=== PATIENT | male | born 1930 | race Caucasian/White ===

== ENCOUNTER 2018-04-23 12:55 | Observation (INO) | payer MEDICARE ==
[2018-04-23 14:05] LABS: BASO % 0.9 % (0.0-2.0); EOS # 0.2 K/uL (0.0-0.7); EOS % 3.9 % (0.0-4.0); LYMPH # 1.4 K/uL (1.0-4.3); LYMPH % 33.4 % (20.0-40.0); MEAN CELL VOLUME 82.8 fl (80.0-94.0); MEAN CORPUSCULAR HEMOGLOBIN 26.5 pg (27.0-31.0); MONO # 0.6 K/uL (0.0-0.8); MONO % 13.6 % (0.0-10.0); NEUT % 48.2 % (50.0-75.0); RBC 3.78 Mil/uL (4.40-5.90); RED CELL DISTRIBUTION WIDTH 16.1 % (11.5-14.5); WHITE BLOOD COUNT 4.2 K/uL (4.8-10.8)
[2018-04-23 14:18] LABS: ALBUMIN 3.7 g/dL (3.5-5.0); ALT/SGPT 21 U/L (21-72); AST/SGOT 34 U/L (17-59); BLOOD UREA NITROGEN 21 mg/dl (9-20); CALCIUM 9.1 mg/dL (8.4-10.2); GFR NON-AFRICAN AMERICAN > 60
--- NOTE | 2018-04-23 15:08 | ED PDOC ---
HPI: Altered Mental Status Time Seen by Provider: 04/23/18 13:28 Chief Complaint (Nursing): Altered Mental Status Chief Complaint (Provider): Altered Mental Status History Per: Patient History/Exam Limitations: None Onset/Duration Of Symptoms: Hrs Current Symptoms Are (Timing): Gone Now Additional Complaint(s): Isiah Anguiano is an 87 year old male with a past medical history of hypertension, hypercholesterolemia, and AFib who was brought to the ED by EMS for evaluation after visiting nurse service went to his home and found him not doing okay. Patient states that he is fine and has no medical complaints at this time. He is unsure why he was brought to the ED and admits that he loves with his son who was not home at the time as he was at work. Home number obt ained from chart reviewed and called, but no one answered. Patient denies any chest pain, shortness of breath, nausea, or vomiting. PMD: none provided Past Medical History Reviewed: Historical Data, Nursing Documentation, Vital Signs Vital Signs: Last Vital Signs Temp Pulse 52 L 04/23/18 13:18 Resp 16 04/23/18 13:18 BP 152/79 H 04/23/18 13:18 Pulse Ox 100 04/23/18 13:18 - Medical History PMH: Atrial Fibrillation, Dementia, HTN, Hypercholesterolemia Denies: Chronic Kidney Disease - Surgical History Surgical History: No Surg Hx - Family History Family History: States: Unknown Family Hx - Social History Current smoker - smoking cessation education provided: No Alcohol: None Drugs: Denies - Immunization History Hx Tetanus Toxoid Vaccination: No Hx Influenza Vaccination: No Hx Pneumococcal Vaccination: No - Home Medications Home Medications: Ambulatory Orders Medication Instructions Recorded Aspirin [Ecotrin] 81 mg PO DAILY #30 tabec 01/06/18 Collagenase [Santyl] 1 gm TOP DAILY #1 tube 01/06/18 Lisinopril [Zestril] 40 mg PO DAILY #30 tab 01/06/18 Metoprolol Tartrate [Lopressor] 25 mg PO DAILY #30 tab 01/06/18 Rosuvastatin Calcium [Crestor] 5 mg PO HS #30 tab 01/06/18 hydroCHLOROthiazide [Microzide] 12.5 mg PO DAILY #30 cap 01/06/18 risperiDONE [RisperDAL Tab] 1 mg PO DAILY #7 tab 01/06/18 - Allergies Allergies/Adverse Reactions: Allergies Allergy/AdvReac Type Severity Reaction Status Date / Time No Known Allergies Allergy Verified 01/05/18 11:09 Review of Systems ROS Statement: Except As Marked, All Systems Reviewed And Found Negative Cardiovascular: Negative for: Chest Pain Respiratory: Negative for: Shortness of Breath Gastrointestinal: Negative for: Nausea, Vomiting Physical Exam - Reviewed Nursing Documentation Reviewed: Yes Vital Signs Reviewed: Yes - Physical Exam Appears: Positive for: Well, Non-toxic, No Acute Distress Head Exam: Positive for: ATRAUMATIC, NORMAL INSPECTION, NORMOCEPHALIC Skin: Positive for: Normal Color, Warm, DRY Eye Exam: Positive for: EOMI, Normal appearance, PERRL ENT: Positive for: Normal ENT Inspection Cardiovascular/Chest: Positive for: Regular Rate, Rhythm. Negative for: Murmur Respiratory: Positive for: Normal Breath Sounds. Negative for: Respiratory Distress Gastrointestinal/Abdominal: Positive for: Normal Exam, Soft. Negative for: Tenderness Extremity: Positive for: Normal ROM. Negative for: Deformity, Swelling Neurologic/Psych: Positive for: Alert, Oriented (patient asked what year he states 2017 is mentally able to ascertain his age, no deficits noted). Negative for: Motor/Sensory Deficits - Laboratory Results Result Diagrams: 04/23/18 14:00 04/23/18 14:00 Lab Results: Total Bilirubin 0.3 mg/dl (0.2-1.3) 04/23/18 14:00 AST 34 U/L (17-59) 04/23/18 14:00 ALT 21 U/L (21-72) 04/23/18 14:00 Alkaline Phosphatase 58 U/L (38-126) 04/23/18 14:00 Total Protein 7.6 G/DL (6.3-8.2) 04/23/18 14:00 Albumin 3.7 g/dL (3.5-5.0) 04/23/18 14:00 Globulin 3.9 gm/dL (2.2-3.9) 04/23/18 14:00 Albumin/Globulin Ratio 1.0 (1.0-2.1) 04/23/18 14:00 - ECG O2 Sat by Pulse Oximetry: 100 (RA) Pulse Ox Interpretation: Normal Medical Decision Making Medical Decision Making: Time: 14:00 Plan: --EKG --CMP --CBC Scribe Attestation: Documented by Manjula Kincaid, acting as a scribe for Etta Plummer MD. Provider Scribe Attestation: All medical record entries made by the Scribe were at my direction and personally dictated by me. I have reviewed the chart and agree that the record accurately reflects my personal performance of the history, physical exam, medical decision making, and the department course for this patient. I have also personally directed, reviewed, and agree with the discharge instructions and disposition. Disposition - Disposition
--- NOTE | 2018-04-23 15:19 | ED PDOC ---
- Laboratory Results Result Diagrams: 04/24/18 05:40 04/24/18 05:40 Lab Results: Total Bilirubin 0.3 mg/dl (0.2-1.3) 04/23/18 14:00 AST 34 U/L (17-59) 04/23/18 14:00 ALT 21 U/L (21-72) 04/23/18 14:00 Alkaline Phosphatase 58 U/L (38-126) 04/23/18 14:00 Total Protein 7.6 G/DL (6.3-8.2) 04/23/18 14:00 Albumin 3.7 g/dL (3.5-5.0) 04/23/18 14:00 Globulin 3.9 gm/dL (2.2-3.9) 04/23/18 14:00 Albumin/Globulin Ratio 1.0 (1.0-2.1) 04/23/18 14:00 - ECG O2 Sat by Pulse Oximetry: 100 (RA) Pulse Ox Interpretation: Normal Medical Decision Making Medical Decision Making: Time: 15:00 Patient presenting for AMS workup was signed out to by Dr. Plummer pending labs. Will continue to attempt collateral from family. Time: 1709 --Labs normal, unsuccessfully attempt to contact family, will continue to contact them. Time: 1942 --Additional attempts to contact patient's son were unsuccessful. Provider contacted [place] PD, who will send out a industrial sales representative to patient's home address to try and get in contact with patient's son. Time: 1949 --[place] officer went to patient's home and no one was home. Time: 2099 --Spoke with Dr. Barnett regarding admission for dementia and AMS, as unable to safely discharge patient home. Patient is becoming agitated and fighting with ED staff. --Given Ativan 2mg IVP x2 Time: 2120 --Hospitalist has seen patient at this time. Scribe Attestation: Documented by Manjula Kincaid, acting as a scribe for Meka Travis MD. Provider Scribe Attestation: All medical record entries made by the Scribe were at my direction and personally dictated by me. I have reviewed the chart and agree that the record accurately reflects my personal performance of the history, physical exam, medical decision making, and the department course for this patient. I have also personally directed, reviewed, and agree with the discharge instructions and disposition. Disposition - Clinical Impression Clinical Impression: Altered mental status - POA Present On Arrival: None - Disposition Disposition: Admitted as In-Patient Disposition Time: 21:21 Condition: FAIR
--- NOTE | 2018-04-23 17:46 | CARD ---
APPROVED REPORT Date of service: 04/23/2018 EKG Measurement Heart [id number] [id number] <Conclusion> Sinus bradycardia with premature atrial complexes Otherwise normal ECG
[2018-04-23 21:36] VITALS: RESP 20
--- NOTE | 2018-04-23 23:23 | CP.PCM.HP ---
<Analilia Sotomayor - Last Filed: 04/24/18 01:05> History of Present Illness - History of Present Illness History of Present Illness: 87 year old male with a past medical history of hypertension, h ypercholesterolemia, anterior left lower extremity ulcer/wound who was brought to the ED by EMS for evaluation after a visiting nurse service called 911 because reportedly the patient was "not doing okay. As per reports, [facility] service did not accompany pt to ED. In ED, patient stated that he felt fine and had no medical complaints. He later got agitated/started fighting with ED staff, and was placed on 1:1 obs and received 2 mg haldol and 2 mg ativan. Patient told ED doctor that he lives with his son. ED attempted to contact son multiple times, as well as contacted [place] PD to go to the address, but no one was reported home, and patient was unsafe discharge at this point. When evaluated in ED, patient appeared to have dementia, was not answering questions appropriately, not sure why he is here but is able to state his name; AAO x1. He appeared tired, recently medicated with ativan. He denied chest pain, shortness of breath, abdominal pain, nausea, or vomiting. Limited history obtained via review of past [facility] visits; pt is retired activity assistant and has been brought in to [facility] in Oct and Dec 2017 after he presented to station asking for his check, though he has been retired for many years; was dx with delerium. Was also dx with cellulitis/dermatitis of wound on left anterior leg. Appears that in Dec 2017, [facility] [place] staff could not reach pt's son until following day. PMD: unknown History included below is from past admission at [facility] [place] in Dec 2017: PMHx: per son, CAD PSHx: per son, patient had a heart surgery and has stents 4 years ago FHx: Denies SocHx: denies tobacco, EtOH is social; three or less glasses of beer or wine in a weekend, denies illicit drugs. Patient still thinks he is a activity assistant in [place] but no longer works per old notes Allergies: NKDA Meds as per discharge summary 12/2017 Aspirin [Ecotrin] 81 mg PO DAILY Collagenase [Santyl] 1 gm TOP DAILY hydroCHLOROthiazide [Microzide] 12.5 mg PO DAILY Lisinopril [Zestril] 40 mg PO DAILY Metoprolol Tartrate [Lopressor] 25 mg PO DAILY risperiDONE [RisperDAL Tab] 1 mg PO DAILY Rosuvastatin Calcium [Crestor] 5 mg PO HS Present on Admission - Present on Admission Any Indicators Present on Admission: No Review of Systems - Review of Systems Systems not reviewed;Unavailable: Altered Mental Status Past Patient History - Past Social History Alcohol: None Drugs: Denies - CARDIAC Hx Cardiac Disorders: Yes (A-fib; HTN; hyperlipidemia) - PULMONARY Hx Respiratory Disorders: No - NEUROLOGICAL Hx Dementia: Yes - HEENT Hx HEENT Problems: No - RENAL Hx Chronic Kidney Disease: No - ENDOCRINE/METABOLIC Hx Endocrine Disorders: No - HEMATOLOGICAL/ONCOLOGICAL Hx Blood Disorders: No - INTEGUMENTARY Hx Dermatological Problems: Yes (LLE ulcer) - MUSCULOSKELETAL/RHEUMATOLOGICAL Hx Musculoskeletal Disorders: No Hx Falls: No - GASTROINTESTINAL Hx Gastrointestinal Disorders: No - GENITOURINARY/GYNECOLOGICAL Hx Genitourinary Disorders: No - PSYCHIATRIC Hx Psychophysiologic Disorder: No Hx Substance Use: No - SURGICAL HISTORY Hx Surgeries: Yes Hx Herniorrhaphy: Yes Other/Comment: heart surgery- with stents 4 years ago - ANESTHESIA Hx Anesthesia: Yes Hx Anesthesia Reactions: No Hx Malignant Hyperthermia: No Meds Allergies/Adverse Reactions: Allergies Allergy/AdvReac Type Severity Reaction Status Date / Time No Known Allergies Allergy Verified 01/05/18 11:09 Physical Exam - Constitutional Appears: Non-toxic, No Acute Distress - Respiratory Exam Respiratory Exam: Clear to Auscultation Bilateral, NORMAL BREATHING PATTERN. absent: Rales, Rhonchi, Wheezes, Respiratory Distress - Cardiovascular Exam Cardiovascular Exam: REGULAR RHYTHM, +S1, +S2 - GI/Abdominal Exam GI & Abdominal Exam: Normal Bowel Sounds, Soft. absent: Tenderness - Extremities Exam Extremities exam: Negative for: calf tenderness Additional comments: left lower ext erythematous, appears as chronic dermatitis; had wrapped bandage/gauze; bandage removed by Dr. Barnett/myself - shallow ulcer w/ surrounding cellulitis no calf tenderness - Back Exam Back exam: NORMAL INSPECTION - Neurological Exam Neurological exam: Alert - Skin Additional comments: no visible scars on abdomen to suggest abdominal surgeries; as well as no scars on chest to suggest open chest procedures left lower ext findings as above Results - Vital Signs Recent Vital Signs: Last Vital Signs Temp 97.5 F L 04/23/18 22:50 Pulse 64 04/23/18 21:00 Resp 20 04/23/18 21:00 BP 167/75 H 04/23/18 21:00 Pulse Ox 100 04/23/18 21:21 - Labs Result Diagrams: 04/23/18 14:00 04/23/18 14:00 Labs: Laboratory Results - last 24 hr 04/23/18 04/23/18 04/23/18 13:00 14:00 14:00 WBC 4.2 L RBC 3.78 L Hgb 10.0 L Hct 31.3 L MCV 82.8 D MCH 26.5 L MCHC 32.0 L RDW 16.1 H Plt Count 233 MPV 8.0 Neut % (Auto) 48.2 L Lymph % (Auto) 33.4 [place] % (Auto) 13.6 H Eos % (Auto) 3.9 Baso % (Auto) 0.9 Neut # (Auto) 2.0 Lymph # (Auto) 1.4 [place] # (Auto) 0.6 Eos # (Auto) 0.2 Baso # (Auto) 0.0 Sodium 139 Potassium 4.5 Chloride 101 Carbon Dioxide 26 Anion Gap 17 BUN 21 H Creatinine 0.9 Est GFR ( Amer) > 60 Est GFR (Non-Af Amer) > 60 POC Glucose (mg/dL) 101 Random Glucose 85 Calcium 9.1 Total Bilirubin 0.3 AST 34 ALT 21 Alkaline Phosphatase 58 Total Protein 7.6 Albumin 3.7 Globulin 3.9 Albumin/Globulin Ratio 1.0 Assessment & Plan - Assessment and Plan (Free Text) Assessment: 87 yo M with hx hypertension, HLD, leg wound, presented to ED after VNS called 911 after concerned for patient, possible AMS although known case of dementia (comes to office asking for his check despite being retired as per past notes); however [facility]NS did not accompany pt to ED and patient unable to provide further history. Pt's family unreachable from ED. Found to have what appears to be acute on chronic ulcer w/ cellulitis on left lower ext. Plan: AMS/Dementia - B12, folate, TSH - UA, Urine culture - Blood culture - Continue attempt to contact pt's family; social work/case management - Home med risperdal Left Lower Ext Ulcer with Cellulitis - Acute on chronic - Blood cultures x2 - Keflex 500 mg QID - Topical bacitracin Hypertension - Resume home meds Hyperlipidemia - Resume home meds Diet - Heart Healthy Diet GI proph - Protonix daily DVT proph - Lovenox SC] Pt seen/examined/discussed w/ Dr. Barnett. <Greyson Barnett - Last Filed: 04/24/18 05:04> Results - Vital Signs Recent Vital Signs: Last Vital Signs Temp 97.3 F L 04/23/18 23:45 Pulse 56 L 04/23/18 23:45 Resp 20 04/23/18 23:45 BP 159/67 H 04/23/18 23:45 Pulse Ox 100 04/23/18 23:45 - Labs Result Diagrams: 04/23/18 14:00 04/23/18 14:00 Labs: Laboratory Results - last 24 hr 04/23/18 04/23/18 04/23/18 13:00 14:00 14:00 WBC 4.2 L RBC 3.78 L Hgb 10.0 L Hct 31.3 L MCV 82.8 D MCH 26.5 L MCHC 32.0 L RDW 16.1 H Plt Count 233 MPV 8.0 Neut % (Auto) 48.2 L Lymph % (Auto) 33.4 [place] % (Auto) 13.6 H Eos % (Auto) 3.9 Baso % (Auto) 0.9 Neut # (Auto) 2.0 Lymph # (Auto) 1.4 [place] # (Auto) 0.6 Eos # (Auto) 0.2 Baso # (Auto) 0.0 Sodium 139 Potassium 4.5 Chloride 101 Carbon Dioxide 26 Anion Gap 17 BUN 21 H Creatinine 0.9 Est GFR ( Amer) > 60 Est GFR (Non-Af Amer) > 60 POC Glucose (mg/dL) 101 Random Glucose 85 Calcium 9.1 Total Bilirubin 0.3 AST 34 ALT 21 Alkaline Phosphatase 58 Total Protein 7.6 Albumin 3.7 Globulin 3.9 Albumin/Globulin Ratio 1.0 Triglycerides Cholesterol LDL Cholesterol Direct HDL Cholesterol Vitamin B12 TSH 3rd Generation Urine Color Urine Clarity Urine pH Ur Specific [place] Urine Protein Urine Glucose (UA) Urine Ketones Urine Blood Urine Nitrate Urine Bilirubin Urine Urobilinogen Ur Leukocyte Esterase Urine RBC (Auto) Urine Microscopic WBC 04/23/18 04/23/18 22:54 23:10 WBC RBC Hgb Hct MCV MCH MCHC RDW Plt Count MPV Neut % (Auto) Lymph % (Auto) [place] % (Auto) Eos % (Auto) Baso % (Auto) Neut # (Auto) Lymph # (Auto) [place] # (Auto) Eos # (Auto) Baso # (Auto) Sodium Potassium Chloride Carbon Dioxide Anion Gap BUN Creatinine Est GFR ( Amer) Est GFR (Non-Af Amer) POC Glucose (mg/dL) Random Glucose Calcium Total Bilirubin AST ALT Alkaline Phosphatase Total Protein Albumin Globulin Albumin/Globulin Ratio Triglycerides 82 Cholesterol 172 LDL Cholesterol Direct 111 HDL Cholesterol 29 L Vitamin B12 283 TSH 3rd Generation 1.24 Urine Color Colorless Urine Clarity Clear Urine pH 7.0 Ur Specific [place] < 1.005 Urine Protein Negative Urine Glucose (UA) Neg Urine Ketones Negative Urine Blood Small Urine Nitrate Negative Urine Bilirubin Negative Urine Urobilinogen 0.2-1.0 Ur Leukocyte Esterase Neg Urine RBC (Auto) 1 Urine Microscopic WBC < 1 Attending/Attestation - Attestation I have personally seen and examined this patient.: Yes I have fully participated in the care of the patient.: Yes I have reviewed all pertinent clinical information: Yes Notes (Text): 04/24/18 04:46 I saw, examined and discussed this patient with Dr Sotomayor. I agree with the assessment and plan outlined. This is an 87 years old male with hx of dementia who was brought to the ED more confused. He was found to have an ulceration at mid anterior left leg with surrounding cellulitis and Stasis dermatitis. He will be treated for the cellulitis and the ulcer will be attended. Because of agitation in the ED, CT of head will be done when the patient is stable. The patient has chronic anemia, follow Hemoglobin Consult Social service to plan transfer of patient back to home as there is no phone calls answered through out the time that the patient is in the hospital. Greyson Barnett MD
[2018-04-24 00:30] LABS: URINE BILIRUBIN NEGATIVE (NEGATIVE); URINE BLOOD SMALL (NEGATIVE); URINE CLARITY CLEAR (Clear); URINE COLOR COLORLESS (YELLOW); URINE GLUCOSE (UA) NEG (NEGATIVE); URINE LEUKOCYTE ESTERASE NEG Leu/uL (Negative); URINE PROTEIN NEGATIVE (NEGATIVE); URINE UROBILINOGEN 0.2-1.0 mg/dL (0.2-1.0)
[2018-04-24 06:36] LABS: BASO % 0.6 % (0.0-2.0); EOS # 0.3 K/uL (0.0-0.7); EOS % 6.6 % (0.0-4.0); HEMOGLOBIN 10.1 g/dL (12.0-18.0); LYMPH # 1.3 K/uL (1.0-4.3); LYMPH % 34.8 % (20.0-40.0); MEAN CELL VOLUME 82.6 fl (80.0-94.0); MEAN CORPUSCULAR HEMOGLOBIN 26.9 pg (27.0-31.0); MEAN CORPUSCULAR HGB CONC 32.5 g/dL (33.0-37.0); MEAN PLATELET VOLUME 7.8 fl (7.2-11.7); MONO # 0.5 K/uL (0.0-0.8); NEUT # 1.7 K/uL (1.8-7.0); RBC 3.78 Mil/uL (4.40-5.90); RED CELL DISTRIBUTION WIDTH 16.3 % (11.5-14.5); WHITE BLOOD COUNT 3.9 K/uL (4.8-10.8)
[2018-04-24 06:50] LABS: BLOOD UREA NITROGEN 18 mg/dl (9-20); CALCIUM 9.2 mg/dL (8.4-10.2); GFR NON-AFRICAN AMERICAN > 60
[2018-04-24 08:10] VITALS: BP 163/73; PULSE 63; TEMP 97.1
[2018-04-24] MEDS ORDERED: Enoxaparin 40 mg Syringe SC SCH (09:00)
[2018-04-24] MEDS ORDERED: Pantoprazole 40 mg EC Tab PO SCH (09:00)
--- NOTE | 2018-04-24 11:18 | CP.PCM.PN ---
<Carmen Faith - Last Filed: 04/24/18 14:22> Subjective - Date & Time of Evaluation Date of Evaluation: 04/24/18 Time of Evaluation: 09:46 - Subjective Subjective: [facility] interpretation services-[id number] Patient was seen and examined this morning. Patient is oriented to self, but not to place. He reports living with his son, but is unable to answer all questions clearly. Objective - Vital Signs/Intake and Output Vital Signs (last 24 hours): Temp Pulse Resp BP Pulse Ox 97.1 F L 63 20 163/73 H 99 04/24/18 08:09 04/24/18 09:29 04/24/18 08:09 04/24/18 09:29 04/24/18 08:09 - Medications Medications: Current Medications Aspirin (Ecotrin) 81 mg PO DAILY [facility] Last Admin: 04/24/18 09:26 Dose: 81 mg Atorvastatin Calcium (Lipitor) 10 mg PO HS [facility] Cephalexin Monohydrate (Keflex) 500 mg PO Q6 [facility]; Protocol Last Admin: 04/24/18 09:27 Dose: 500 mg Enoxaparin Sodium (Lovenox) 40 mg SC DAILY [facility]; Protocol Last Admin: 04/24/18 09:28 Dose: 40 mg Hydrochlorothiazide (Microzide) 12.5 mg PO DAILY [facility] Last Admin: 04/24/18 09:28 Dose: 12.5 mg Lisinopril (Zestril) 40 mg PO DAILY [facility] Last Admin: 04/24/18 09:29 Dose: 40 mg Metoprolol Tartrate (Lopressor) 25 mg PO DAILY [facility] Last Admin: 04/24/18 09:27 Dose: 25 mg Pantoprazole Sodium (Protonix Ec Tab) 40 mg PO DAILY [facility] Last Admin: 04/24/18 09:28 Dose: 40 mg Risperidone (Risperdal Tab) 1 mg PO DAILY [facility] Last Admin: 04/24/18 09:29 Dose: 1 mg - Labs Labs: 04/24/18 05:40 04/24/18 05:40 - Head Exam Head Exam: ATRAUMATIC - Eye Exam Eye Exam: EOMI - ENT Exam ENT Exam: Mucous Membranes Moist - Respiratory Exam Respiratory Exam: NORMAL BREATHING PATTERN. absent: Clear to Ausculation Bilateral, Wheezes, Respiratory Distress - Cardiovascular Exam Cardiovascular Exam: REGULAR RHYTHM, +S1, +S2 - GI/Abdominal Exam GI & Abdominal Exam: Soft. absent: Guarding, Rigid, Tenderness - Extremities Exam Additional comments: -dry lower legs b/l -flaking skin with some erythema of left lower leg, leathery in appearance; a 5cm circular area with granulation tissue - Neurological Exam Neurological Exam: Awake Additional comments: oriented to self, but not to place - Psychiatric Exam Psychiatric exam: Normal Mood Assessment and Plan - Assessment and Plan (Free Text) Assessment: 87 yo M with hx of dementia, HTN, HLD, chronic stasis dermatitis with left lower leg wound admitted for further evaluation of AMS vs basline Dementia & left lower leg ulcer. 1. AMS? vs baseline Dementia - B12: 283, FU folate, TSH-1.24 - UA: leuk & nitrates negative -FU Urine & blood culture - Continue attempt to contact pt's son ([phone]) - C/w risperdal 1 mg PO QD 2. Left Lower Ext Ulcer with chronic stasis dermatitis -Podiatry consulted. FU recommendations. - FU Blood cultures -Ordered 1 dose of vancomycin 1 gm, once - C/w Keflex 500 mg QID 3. Hypertension - C/w HCTZ 12.5mg PO QD -C/w lisinopril 40mg PO QD -C/w metoprolol tartrate 25mg PO QD Hyperlipidemia - C/w Atorvastatin 10mg PO HS 4. Diet - Heart Healthy Diet 5. GI proph - Protonix 40mg PO QD 6. DVT proph - Lovenox 40mg SC <Laquita Paul - Last Filed: 04/24/18 17:49> Objective - Vital Signs/Intake and Output Vital Signs (last 24 hours): Temp Pulse Resp BP Pulse Ox 97.1 F L 63 20 163/73 H 99 04/24/18 08:09 04/24/18 09:29 04/24/18 08:09 04/24/18 09:29 04/24/18 08:09 - Medications Medications: Current Medications Aspirin (Ecotrin) 81 mg PO DAILY [facility] Last Admin: 04/24/18 09:26 Dose: 81 mg Atorvastatin Calcium (Lipitor) 10 mg PO HS [facility] Cephalexin Monohydrate (Keflex) 500 mg PO Q6 [facility]; Protocol Last Admin: 04/24/18 16:46 Dose: 500 mg Enoxaparin Sodium (Lovenox) 40 mg SC DAILY [facility]; Protocol Last Admin: 04/24/18 09:28 Dose: 40 mg Hydrochlorothiazide (Microzide) 12.5 mg PO DAILY [facility] Last Admin: 04/24/18 09:28 Dose: 12.5 mg Vancomycin HCl 1 gm/ Sodium (Chloride) 250 mls @ 166.667 mls/hr IVPB Q12 [facility]; Protocol Lisinopril (Zestril) 40 mg PO DAILY [facility] Last Admin: 04/24/18 09:29 Dose: 40 mg Metoprolol Tartrate (Lopressor) 25 mg PO DAILY [facility] Last Admin: 04/24/18 09:27 Dose: 25 mg Pantoprazole Sodium (Protonix Ec Tab) 40 mg PO DAILY [facility] Last Admin: 04/24/18 09:28 Dose: 40 mg Risperidone (Risperdal Tab) 1 mg PO DAILY [facility] Last Admin: 04/24/18 09:29 Dose: 1 mg - Labs Labs: 04/24/18 05:40 04/24/18 05:40 Attending/Attestation - Attestation I have personally seen and examined this patient.: Yes I have fully participated in the care of the patient.: Yes I have reviewed all pertinent clinical information, including history, physical exam and plan: Yes Notes (Text): Dementia with Behavioral changes Left Tibial Ulcer, chronic with mild cellulitis ( POA) HTN - Pt on Risperdal , will cont - received Haldol prn - start IV Vanco 1 gram q 12 - Wound Care consulted - Podiatry consult - Geropsych consult
--- NOTE | 2018-04-24 13:11 | CT ---
Date of service: 04/24/2018 PROCEDURE: CT HEAD WITHOUT CONTRAST. HISTORY: Worsened altered mental status COMPARISON: 03/16/2014. TECHNIQUE: Axial computed tomography images were obtained through the head/brain without intravenous contrast. Radiation dose: Total exam DLP = 856.79 mGy-cm. This CT exam was performed using one or more of the following dose reduction techniques: Automated exposure control, adjustment of the mA and/or kV according to patient size, and/or use of iterative reconstruction technique. FINDINGS: HEMORRHAGE: No intracranial hemorrhage. BRAIN: There are mild chronic microangiopathic changes. There are old lacunar infarctions in the caudate heads and left basal ganglia. There is no mass, mass effect or abnormal extra-axial fluid collection. There is no territorial infarction. The midline sagittal structures are normal.There are coarse atherosclerotic calcifications in the cavernous carotid arteries. VENTRICLES: There is moderate age-related global parenchymal volume loss and proportionate enlargement of the ventricles and cortical sulci. CALVARIUM: There is no calvarial fracture or extracranial soft tissue swelling. PARANASAL SINUSES: There is mild polypoid mucosal thickening in the left maxillary sinus. The remaining included paranasal sinuses and mastoid air cells are clear. MASTOID AIR CELLS: Predominantly clear. OTHER FINDINGS: None. IMPRESSION: No acute intracranial abnormality. 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 Mild chronic microangiopathic changes and moderate age-related global parenchymal volume loss.
[2018-04-24] MEDS ORDERED: Haloperidol Lactate 2 mg/ml Liquid PO ONE (13:15)
--- NOTE | 2018-04-24 14:40 | CP.PCM.CON ---
Past Patient History - Past Medical History & Family History Past Medical History?: Yes - Past Social History Alcohol: None Drugs: Denies - CARDIAC Hx Cardiac Disorders: Yes (A-fib; HTN; hyperlipidemia) - PULMONARY Hx Respiratory Disorders: No - NEUROLOGICAL Hx Dementia: Yes - HEENT Hx HEENT Problems: No - RENAL Hx Chronic Kidney Disease: No - ENDOCRINE/METABOLIC Hx Endocrine Disorders: No - HEMATOLOGICAL/ONCOLOGICAL Hx Blood Disorders: No - INTEGUMENTARY Hx Dermatological Problems: Yes (LLE ulcer) - MUSCULOSKELETAL/RHEUMATOLOGICAL Hx Musculoskeletal Disorders: No Hx Falls: No - GASTROINTESTINAL Hx Gastrointestinal Disorders: No - GENITOURINARY/GYNECOLOGICAL Hx Genitourinary Disorders: No - PSYCHIATRIC Hx Psychophysiologic Disorder: No Hx Substance Use: No - SURGICAL HISTORY Hx Surgeries: Yes Hx Herniorrhaphy: Yes Other/Comment: heart surgery- with stents 4 years ago - ANESTHESIA Hx Anesthesia: Yes Hx Anesthesia Reactions: No Hx Malignant Hyperthermia: No Meds Allergies/Adverse Reactions: Allergies Allergy/AdvReac Type Severity Reaction Status Date / Time No Known Allergies Allergy Verified 01/05/18 11:09 - Medications Medications: Current Medications Aspirin (Ecotrin) 81 mg PO DAILY [facility] Last Admin: 04/24/18 09:26 Dose: 81 mg Atorvastatin Calcium (Lipitor) 10 mg PO HS [facility] Cephalexin Monohydrate (Keflex) 500 mg PO Q6 [facility]; Protocol Last Admin: 04/24/18 09:27 Dose: 500 mg Enoxaparin Sodium (Lovenox) 40 mg SC DAILY [facility]; Protocol Last Admin: 04/24/18 09:28 Dose: 40 mg Hydrochlorothiazide (Microzide) 12.5 mg PO DAILY [facility] Last Admin: 04/24/18 09:28 Dose: 12.5 mg Lisinopril (Zestril) 40 mg PO DAILY [facility] Last Admin: 04/24/18 09:29 Dose: 40 mg Metoprolol Tartrate (Lopressor) 25 mg PO DAILY [facility] Last Admin: 04/24/18 09:27 Dose: 25 mg Pantoprazole Sodium (Protonix Ec Tab) 40 mg PO DAILY [facility] Last Admin: 04/24/18 09:28 Dose: 40 mg Risperidone (Risperdal Tab) 1 mg PO DAILY [facility] Last Admin: 04/24/18 09:29 Dose: 1 mg Results - Vital Signs Recent Vital Signs: Last Vital Signs Temp 97.1 F L 04/24/18 08:09 Pulse 63 04/24/18 09:29 Resp 20 04/24/18 08:09 BP 163/73 H 04/24/18 09:29 Pulse Ox 99 04/24/18 08:09 - Labs Result Diagrams: 04/24/18 05:40 04/24/18 05:40 Labs: Laboratory Results - last 24 hr 04/23/18 04/23/18 04/23/18 14:00 22:54 23:10 WBC RBC Hgb Hct MCV MCH MCHC RDW Plt Count MPV Neut % (Auto) Lymph % (Auto) [place] % (Auto) Eos % (Auto) Baso % (Auto) Neut # (Auto) Lymph # (Auto) [place] # (Auto) Eos # (Auto) Baso # (Auto) Sodium 139 Potassium 4.5 Chloride 101 Carbon Dioxide 26 Anion Gap 17 BUN 21 H Creatinine 0.9 Est GFR ( Amer) > 60 Est GFR (Non-Af Amer) > 60 POC Glucose (mg/dL) Random Glucose 85 Calcium 9.1 Total Bilirubin 0.3 AST 34 ALT 21 Alkaline Phosphatase 58 Total Protein 7.6 Albumin 3.7 Globulin 3.9 Albumin/Globulin Ratio 1.0 Triglycerides 82 Cholesterol 172 LDL Cholesterol Direct 111 HDL Cholesterol 29 L Vitamin B12 283 TSH 3rd Generation 1.24 Urine Color Colorless Urine Clarity Clear Urine pH 7.0 Ur Specific Ragland < 1.005 Urine Protein Negative Urine Glucose (UA) Neg Urine Ketones Negative Urine Blood Small Urine Nitrate Negative Urine Bilirubin Negative Urine Urobilinogen 0.2-1.0 Ur Leukocyte Esterase Neg Urine RBC (Auto) 1 Urine Microscopic WBC < 1 04/24/18 04/24/18 04/24/18 05:30 05:40 05:40 WBC 3.9 L RBC 3.78 L Hgb 10.1 L Hct 31.2 L MCV 82.6 MCH 26.9 L MCHC 32.5 L RDW 16.3 H Plt Count 221 MPV 7.8 Neut % (Auto) 44.0 L Lymph % (Auto) 34.8 [place] % (Auto) 14.0 H Eos % (Auto) 6.6 H Baso % (Auto) 0.6 Neut # (Auto) 1.7 L Lymph # (Auto) 1.3 [place] # (Auto) 0.5 Eos # (Auto) 0.3 Baso # (Auto) 0.0 Sodium 140 Potassium 4.7 Chloride 104 Carbon Dioxide 26 Anion Gap 15 BUN 18 Creatinine 1.0 Est GFR ( Amer) > 60 Est GFR (Non-Af Amer) > 60 POC Glucose (mg/dL) 87 Random Glucose 86 Calcium 9.2 Total Bilirubin AST ALT Alkaline Phosphatase Total Protein Albumin Globulin Albumin/Globulin Ratio Triglycerides Cholesterol LDL Cholesterol Direct HDL Cholesterol Vitamin B12 TSH 3rd Generation Urine Color Urine Clarity Urine pH Ur Specific Ragland Urine Protein Urine Glucose (UA) Urine Ketones Urine Blood Urine Nitrate Urine Bilirubin Urine Urobilinogen Ur Leukocyte Esterase Urine RBC (Auto) Urine Microscopic WBC 04/24/18 10:45 WBC RBC Hgb Hct MCV MCH MCHC RDW Plt Count MPV Neut % (Auto) Lymph % (Auto) [place] % (Auto) Eos % (Auto) Baso % (Auto) Neut # (Auto) Lymph # (Auto) [place] # (Auto) Eos # (Auto) Baso # (Auto) Sodium Potassium Chloride Carbon Dioxide Anion Gap BUN Creatinine Est GFR ( Amer) Est GFR (Non-Af Amer) POC Glucose (mg/dL) 160 H Random Glucose Calcium Total Bilirubin AST ALT Alkaline Phosphatase Total Protein Albumin Globulin Albumin/Globulin Ratio Triglycerides Cholesterol LDL Cholesterol Direct HDL Cholesterol Vitamin B12 TSH 3rd Generation Urine Color Urine Clarity Urine pH Ur Specific Ragland Urine Protein Urine Glucose (UA) Urine Ketones Urine Blood Urine Nitrate Urine Bilirubin Urine Urobilinogen Ur Leukocyte Esterase Urine RBC (Auto) Urine Microscopic WBC
--- NOTE | 2018-04-24 23:06 | CP.PCM.DIS ---
<BranAnalilia - Last Filed: 04/25/18 00:33> Provider - Provider Date of Admission: 04/23/18 20:54 Attending physician: Greyson Barnett Consults: 04/24/18 04:57 Wound Care [Nursing Referral for Wound Care] Routine Comment: Physician Instructions: Reason For Exam: Ulceration at anterior left leg 04/24/18 11:54 Physician Consult Routine Comment: Consulting Provider: Jakub Mckeon Consulting Physician: Jakub Mckeon Reason for Consult: left lower leg ulcer Time Spent in preparation of Discharge (in minutes): 25 Diagnosis - Discharge Diagnosis (1) Dementia Status: Chronic (2) Hypertension Status: Chronic (3) Leg wound, left Status: Chronic Hospital Course - Lab Results Lab Results: Most Recent Lab Values WBC 3.9 K/uL (4.8-10.8) L 04/24/18 05:40 RBC 3.78 Mil/uL (4.40-5.90) L 04/24/18 05:40 Hgb 10.1 g/dL (12.0-18.0) L 04/24/18 05:40 Hct 31.2 % (35.0-51.0) L 04/24/18 05:40 MCV 82.6 fl (80.0-94.0) 04/24/18 05:40 MCH 26.9 pg (27.0-31.0) L 04/24/18 05:40 MCHC 32.5 g/dL (33.0-37.0) L 04/24/18 05:40 RDW 16.3 % (11.5-14.5) H 04/24/18 05:40 Plt Count 221 K/uL (130-400) 04/24/18 05:40 MPV 7.8 fl (7.2-11.7) 04/24/18 05:40 Neut % (Auto) 44.0 % (50.0-75.0) L 04/24/18 05:40 Lymph % (Auto) 34.8 % (20.0-40.0) 04/24/18 05:40 [place] % (Auto) 14.0 % (0.0-10.0) H 04/24/18 05:40 Eos % (Auto) 6.6 % (0.0-4.0) H 04/24/18 05:40 Baso % (Auto) 0.6 % (0.0-2.0) 04/24/18 05:40 Neut # (Auto) 1.7 K/uL (1.8-7.0) L 04/24/18 05:40 Lymph # (Auto) 1.3 K/uL (1.0-4.3) 04/24/18 05:40 [place] # (Auto) 0.5 K/uL (0.0-0.8) 04/24/18 05:40 Eos # (Auto) 0.3 K/uL (0.0-0.7) 04/24/18 05:40 Baso # (Auto) 0.0 K/uL (0.0-0.2) 04/24/18 05:40 Sodium 140 mmol/l (132-148) 04/24/18 05:40 Potassium 4.7 MMOL/L (3.6-5.0) 04/24/18 05:40 Chloride 104 mmol/L (98-107) 04/24/18 05:40 Carbon Dioxide 26 mmol/L (22-30) 04/24/18 05:40 Anion Gap 15 (10-20) 04/24/18 05:40 BUN 18 mg/dl (9-20) 04/24/18 05:40 Creatinine 1.0 mg/dl (0.8-1.5) 04/24/18 05:40 Est GFR ( Amer) > 60 04/24/18 05:40 Est GFR (Non-Af Amer) > 60 04/24/18 05:40 POC Glucose (mg/dL) 81 mg/dL (65-110) 04/24/18 16:11 Random Glucose 86 mg/dL (75-110) 04/24/18 05:40 Calcium 9.2 mg/dL (8.4-10.2) 04/24/18 05:40 Total Bilirubin 0.3 mg/dl (0.2-1.3) 04/23/18 14:00 AST 34 U/L (17-59) 04/23/18 14:00 ALT 21 U/L (21-72) 04/23/18 14:00 Alkaline Phosphatase 58 U/L (38-126) 04/23/18 14:00 Total Protein 7.6 G/DL (6.3-8.2) 04/23/18 14:00 Albumin 3.7 g/dL (3.5-5.0) 04/23/18 14:00 Globulin 3.9 gm/dL (2.2-3.9) 04/23/18 14:00 Albumin/Globulin Ratio 1.0 (1.0-2.1) 04/23/18 14:00 Triglycerides 82 mg/DL (0-149) 04/23/18 22:54 Cholesterol 172 mg/dL (0-199) 04/23/18 22:54 LDL Cholesterol Direct 111 mg/dL (0-129) 04/23/18 22:54 HDL Cholesterol 29 MG/DL (30-70) L 04/23/18 22:54 Vitamin B12 283 pg/mL (239-931) 04/23/18 22:54 Folate 10.9 ng/mL 04/24/18 11:15 TSH 3rd Generation 1.24 mIU/ML (0.46-4.68) 04/23/18 22:54 Urine Color Colorless (YELLOW) 04/23/18 23:10 Urine Clarity Clear (Clear) 04/23/18 23:10 Urine pH 7.0 (5.0-8.0) 04/23/18 23:10 Ur Specific Cascade < 1.005 (1.003-1.030) 04/23/18 23:10 Urine Protein Negative mg/dL (NEGATIVE) 04/23/18 23:10 Urine Glucose (UA) Neg mg/dL (NEGATIVE) 04/23/18 23:10 Urine Ketones Negative mg/dL (NEGATIVE) 04/23/18 23:10 Urine Blood Small (NEGATIVE) 04/23/18 23:10 Urine Nitrate Negative (NEGATIVE) 04/23/18 23:10 Urine Bilirubin Negative (NEGATIVE) 04/23/18 23:10 Urine Urobilinogen 0.2-1.0 mg/dL (0.2-1.0) 04/23/18 23:10 Ur Leukocyte Esterase Neg Idania/uL (Negative) 04/23/18 23:10 Urine RBC (Auto) 1 /hpf (0-3) 04/23/18 23:10 Urine Microscopic WBC < 1 /hpf (0-5) 04/23/18 23:10 - Hospital Course Hospital Course: 87 year old male with a past medical history of hypertension, hypercholesterolemia, anterior left lower extremity ulcer/wound who was brought to the ED by EMS for evaluation after a visiting nurse service called 911 because reportedly the patient was "not doing okay. As per EMS run sheet, this was [facility] first visit to the house and the nurse did not know patient's baseline. He was found to have a chronic dermatitis with cellulitis on LLE (documented on past admission). Pt's next of kin (son) could not be reached from ED on arrival, and he was admitted and started on antibiotics; home meds were resumed. He did not have signs of infection like elevated white count or fever, TSH wnl, no sign in infection in urine, B12 low normal. He remained in stable condition during hospital stay. This evening, pt's son telephoned floor and made RN aware that he was coming in to pickle maker his father. Pt's son and other family member came at 850 pm; met with them at bedside to discuss about patient discharge. Advised son that pt needs 24 hr supervision due to dementia and it is unsafe for him to be alone; inquired if son is able to arrange that for his father. Son stated that he would be able to stay home with his father tomorrow, and that they have a family friend who will come and take care of him at home after that. Son understands that as next of kin he takes responsibility for pt's safety at home, and stated that his father would not be left alone. Prefers to take patient home tonight. data processing clerk Tomasa Rodriguez present for interpretation during this encounter. Advised son that pt's chronic medications will be refilled for 1 mo, B12 for 2 weeks, and will be given antibiotic keflex 4 times a day x 7 days; sent to preferred pharmacy [facility] at [address] [place] [address] in [place]. Advised to f/u with his PMD in [place] in 1-2 days, and wound care at [place] or [place]; referral in discharge packet. Patient seen, appears to be more alert than on admission, calm, speaking in full sentences, somewhat confused but overall mentation improved from day before. Discussed plan w/ Dr. Paul earlier in the day. Discharge Exam - Head Exam Head Exam: ATRAUMATIC, NORMAL INSPECTION - Respiratory Exam Respiratory Exam: NORMAL BREATHING PATTERN. absent: Respiratory Distress - Cardiovascular Exam Cardiovascular Exam: REGULAR RHYTHM - GI/Abdominal Exam GI & Abdominal Exam: Soft - Extremities Exam Additional comments: dressing in place over wound on LLE - Neurological Exam Neurological exam: Alert - Psychiatric Exam Psychiatric exam: Normal Mood - Skin Skin Exam: Dry, Warm Discharge Plan - Discharge Medications Prescriptions: Aspirin [Ecotrin] 81 mg PO DAILY #30 tabec Cephalexin [Keflex] 500 mg PO Q6 7 Days #28 cap Cyanocobalamin (Vitamin B-12) [Vitamin B-12] 1,000 mcg PO DAILY #14 capsule hydroCHLOROthiazide [Microzide] 12.5 mg PO DAILY #30 cap Lisinopril [Zestril] 40 mg PO DAILY #30 tab Metoprolol Tartrate [Lopressor] 25 mg PO DAILY #30 tab risperiDONE [RisperDAL Tab] 1 mg PO DAILY #30 tab Rosuvastatin Calcium [Crestor] 5 mg PO HS #30 tab - Follow Up Plan Condition: FAIR Disposition: HOME/ ROUTINE Instructions: High Blood Pressure in Adults, Altered Mental Status (DC), Dementia (DC) Additional Instructions: Please follow up with your PMD in 1-3 days. Please take medications as prescribed - sent to your pharmacy at [address] [place] [address]. [facility] Call for appointment. [address] [place] [address] & [place] [address] Referrals: [facility] [Outside] [facility] [place] [facility] [Outside] <HumbertoJaclynLaquita Lita - Last Filed: 04/25/18 17:53> Provider - Provider Date of Admission: 04/23/18 20:54 Attending physician: Greyson Barnett Consults: 04/24/18 04:57 Wound Care [Nursing Referral for Wound Care] Routine Comment: Physician Instructions: Reason For Exam: Ulceration at anterior left leg 04/24/18 11:54 Physician Consult Routine Comment: Consulting Provider: Jakub Mckeon Consulting Physician: Jakub Mckeon Reason for Consult: left lower leg ulcer Hospital Course - Lab Results Lab Results: Micro Results 04/24/18 04:00 Urine Random Urine Culture - Final No Growth (<1,000 CFU/ML) 04/24/18 00:20 Blood Blood Culture - Preliminary NO GROWTH AFTER 24 HOURS 04/24/18 00:40 Blood Blood Culture - Preliminary NO GROWTH AFTER 24 HOURS Most Recent Lab Values WBC 3.9 K/uL (4.8-10.8) L 04/24/18 05:40 RBC 3.78 Mil/uL (4.40-5.90) L 04/24/18 05:40 Hgb 10.1 g/dL (12.0-18.0) L 04/24/18 05:40 Hct 31.2 % (35.0-51.0) L 04/24/18 05:40 MCV 82.6 fl (80.0-94.0) 04/24/18 05:40 MCH 26.9 pg (27.0-31.0) L 04/24/18 05:40 MCHC 32.5 g/dL (33.0-37.0) L 04/24/18 05:40 RDW 16.3 % (11.5-14.5) H 04/24/18 05:40 Plt Count 221 K/uL (130-400) 04/24/18 05:40 MPV 7.8 fl (7.2-11.7) 04/24/18 05:40 Neut % (Auto) 44.0 % (50.0-75.0) L 04/24/18 05:40 Lymph % (Auto) 34.8 % (20.0-40.0) 04/24/18 05:40 [place] % (Auto) 14.0 % (0.0-10.0) H 04/24/18 05:40 Eos % (Auto) 6.6 % (0.0-4.0) H 04/24/18 05:40 Baso % (Auto) 0.6 % (0.0-2.0) 04/24/18 05:40 Neut # (Auto) 1.7 K/uL (1.8-7.0) L 04/24/18 05:40 Lymph # (Auto) 1.3 K/uL (1.0-4.3) 04/24/18 05:40 [place] # (Auto) 0.5 K/uL (0.0-0.8) 04/24/18 05:40 Eos # (Auto) 0.3 K/uL (0.0-0.7) 04/24/18 05:40 Baso # (Auto) 0.0 K/uL (0.0-0.2) 04/24/18 05:40 Sodium 140 mmol/l (132-148) 04/24/18 05:40 Potassium 4.7 MMOL/L (3.6-5.0) 04/24/18 05:40 Chloride 104 mmol/L (98-107) 04/24/18 05:40 Carbon Dioxide 26 mmol/L (22-30) 04/24/18 05:40 Anion Gap 15 (10-20) 04/24/18 05:40 BUN 18 mg/dl (9-20) 04/24/18 05:40 Creatinine 1.0 mg/dl (0.8-1.5) 04/24/18 05:40 Est GFR ( Amer) > 60 04/24/18 05:40 Est GFR (Non-Af Amer) > 60 04/24/18 05:40 POC Glucose (mg/dL) 81 mg/dL (65-110) 04/24/18 16:11 Random Glucose 86 mg/dL (75-110) 04/24/18 05:40 Calcium 9.2 mg/dL (8.4-10.2) 04/24/18 05:40 Total Bilirubin 0.3 mg/dl (0.2-1.3) 04/23/18 14:00 AST 34 U/L (17-59) 04/23/18 14:00 ALT 21 U/L (21-72) 04/23/18 14:00 Alkaline Phosphatase 58 U/L (38-126) 04/23/18 14:00 Total Protein 7.6 G/DL (6.3-8.2) 04/23/18 14:00 Albumin 3.7 g/dL (3.5-5.0) 04/23/18 14:00 Globulin 3.9 gm/dL (2.2-3.9) 04/23/18 14:00 Albumin/Globulin Ratio 1.0 (1.0-2.1) 04/23/18 14:00 Triglycerides 82 mg/DL (0-149) 04/23/18 22:54 Cholesterol 172 mg/dL (0-199) 04/23/18 22:54 LDL Cholesterol Direct 111 mg/dL (0-129) 04/23/18 22:54 HDL Cholesterol 29 MG/DL (30-70) L 04/23/18 22:54 Vitamin B12 283 pg/mL (239-931) 04/23/18 22:54 Folate 10.9 ng/mL 04/24/18 11:15 TSH 3rd Generation 1.24 mIU/ML (0.46-4.68) 04/23/18 22:54 Urine Color Colorless (YELLOW) 04/23/18 23:10 Urine Clarity Clear (Clear) 04/23/18 23:10 Urine pH 7.0 (5.0-8.0) 04/23/18 23:10 Ur Specific C[place] < 1.005 (1.003-1.030) 04/23/18 23:10 Urine Protein Negative mg/dL (NEGATIVE) 04/23/18 23:10 Urine Glucose (UA) Neg mg/dL (NEGATIVE) 04/23/18 23:10 Urine Ketones Negative mg/dL (NEGATIVE) 04/23/18 23:10 Urine Blood Small (NEGATIVE) 04/23/18 23:10 Urine Nitrate Negative (NEGATIVE) 04/23/18 23:10 Urine Bilirubin Negative (NEGATIVE) 04/23/18 23:10 Urine Urobilinogen 0.2-1.0 mg/dL (0.2-1.0) 04/23/18 23:10 Ur Leukocyte Esterase Neg Idania/uL (Negative) 04/23/18 23:10 Urine RBC (Auto) 1 /hpf (0-3) 04/23/18 23:10 Urine Microscopic WBC < 1 /hpf (0-5) 04/23/18 23:10 Attending/Attestation - Attestation I have personally seen and examined this patient.: Yes I have fully participated in the care of the patient.: Yes I have reviewed all pertinent clinical information, including history, physical exam and plan: Yes Notes (Text): Dementia with Behavioral changes Left Tibial Ulcer, chronic with mild cellulitis ( POA) HTN - Pt on Risperdal - continue - received Haldol prn - Vanco 1 gram IV given, will d/c pt on PO Keflex - Wound Care consulted- wound looks clean granulating - pt [facility] - resatrt Metoprolol, Lisinopril and HCTZ for BP - ff up with PMD hilda
[2018-04-26 09:48] VITALS: O2SAT 100
== END 2018-04-24 22:05 | disposition home or self-care (01) ==
LOC: H.ER 12:55 → H.ERHOLD 20:54 → H.MEDSURG1 23:25
PROVIDERS: ADMIT Internal Medicine; ATTEND Internal Medicine
DX: F03.91 Unspecified dementia, unspecified severity, with behavioral disturbance (principal); L97.829 Non-pressure chronic ulcer of other part of left lower leg with unspecified severity; E78.00 Pure hypercholesterolemia, unspecified; E78.5 Hyperlipidemia, unspecified; Z79.82 Long term (current) use of aspirin; I48.91 Unspecified atrial fibrillation; I10 Essential (primary) hypertension; I87.2 Venous insufficiency (chronic) (peripheral); L03.116 Cellulitis of left lower limb; D64.9 Anemia, unspecified
CPT/HCPCS: 36415; 70450; 80048; 80053; 80061; 81003; 82607; 82746; 82948; 84443; 85025; 87040; 87086; 93005; 96365; 96372; 96375; 97116; 97161; 97530; 99285; G0378; G8978; G8979; J1630; J1650; J2060; J3370; J3420